=== PATIENT | female | born 1990 | race Caucasian/White ===

== ENCOUNTER 2019-12-06 08:56 | Emergency (ER) | payer OTHER, SELFPAY ==
[2019-12-06 09:12] VITALS: BP 124/73; PULSE 120; RESP 16; TEMP 37.9; O2SAT 98
--- NOTE | 2019-12-06 09:32 | ED.URI ---
HPI - URI/Sore Throat General Chief Complaint: Upper Respiratory Infection Stated Complaint: Fever/Sore Throat/Rash/Headache Time Seen by Provider: 12/06/19 09:21 Source: patient and RN notes reviewed Mode of arrival: ambulatory Limitations: no limitations History of Present Illness HPI Narrative: Patient presents today complaining of a 3-day history of body aches, chills, sore throat, rhinorrhea, cough. She reports fever up to 101.4 since last night and hives to the neck, chest, and back since this morning. Denies itching of the rash. She has been taking ibuprofen with some relief. Last dose was at 1700 last night. She did not receive a flu vaccine. She does not smoke or vape. No history of asthma or COPD. MD elicited complaint: fever and other (Rash, body aches) Related Data Home Medications Medication Instructions Recorded Confirmed Control Pills 1 tablet PO DAILY 12/06/19 Allergies Allergy/AdvReac Type Severity Reaction Status Date / Time No Known Allergies Allergy Verified 12/06/19 09:22 Review of Systems Review of Systems: Narrative: CONSTITUTIONAL: Denies sweats.+ Fever, body aches, chills EYES: Denies visual changes, redness, or discharge. ENT: Denies otalgia.+ Sore throat, rhinorrhea, congestion CARDIOVASCULAR: Denies chest pain, palpitations, or edema. RESPIRATORY: Denies dyspnea.+ Cough GASTROINTESTINAL: Denies abdominal pain, nausea, vomiting, or diarrhea. GENITOURINARY: Denies dysuria or hematuria. SKIN: Denies rash, itching, or wounds. MUSCULOSKELETAL: Denies back pain, joint pain, or myalgia. NEUROLOGIC: Denies headache, numbness, tingling, or weakness. PSYCH: Denies depression or anxiety. PMFSH Comments At time of signature, I have reviewed and agree with nursing past medical, surgical, social and family history unless otherwise noted. Please see nursing chart for further information. There is no relevant family history pertinent to the presenting complaint Exam Narrative: Exam Narrative: GENERAL: Well-appearing, well-nourished, and in no acute distress. HEAD: Normocephalic, atraumatic. EYES: EOMI. No redness or drainage. Conjunctivae normal. ENT: Mucous membranes pink and moist. Nares clear. No rhinorrhea. TMs normal bilaterally. Throat mildly erythematous posteriorly without edema or exudate. Uvula midline. NECK: Normal AROM. Supple. No lymphadenopathy. CHEST: No respiratory distress. Clear to auscultation. HEART: Regular rate and rhythm. No murmur appreciated. Normal peripheral pulses. EXTREMITIES: Normal range of motion. No edema. SKIN: Warm, dry. Erythematous urticarial rash to the neck, chest, and back NEURO: No focal deficits. Alert and oriented x3. Gait steady. PSYCH: Normal affect. No signs of depression or anxiety. Course Vital Signs Vital signs: Vital Signs Temperature 100.2 F H 12/06/19 09:12 Pulse Rate 120 H 12/06/19 09:12 Respiratory Rate 16 12/06/19 09:12 Blood Pressure 124/73 12/06/19 09:12 Pulse Oximetry 98 12/06/19 09:12 Temperature 100.2 F H 12/06/19 09:12 Pulse Rate 120 H 12/06/19 09:12 Respiratory Rate 16 12/06/19 09:12 Blood Pressure 124/73 12/06/19 09:12 Pulse Oximetry 98 12/06/19 09:12 Reviewed. Pt has been instructed to follow up with her PCP regarding her elevated blood pressure today. MDM - URI/Sore Throat Differential Diagnosis Differential diagnosis: Likely upper respiratory infection, sinusitis, viral infection, bronchitis, influenza, pharyngitis and other (Strep throat) Lab Data Attestation: I reviewed the patient's lab results. Labs: Influenza A Screen Negative Reference Range: Negative Influenza B Screen Negative Reference Range: Negative Strep Screen Presumptive Negative *(Reference Range: Negative)* Critical Care Time Critical Care Time Critical Care Time: No Discharge Plan Discharge Clinical Impression: Viral exanthem
== END 2019-12-06 09:38 | disposition home or self-care (01) ==
PROVIDERS: Emergency Provider Nurse Practitioner
DX: B09 Unspecified viral infection characterized by skin and mucous membrane lesions (principal); J06.9 Acute upper respiratory infection, unspecified
CPT/HCPCS: 87081; 87804; 87880; 99203; G0463